=== PATIENT | male | born 1970 | race African-American/Black ===

== ENCOUNTER → 2017-06-11 | Outpatient (CLI) | payer BC ==
[~2017-06-11] MED LIST: OMEP20CA4
[2017-06-11 15:41] LABS: CLARITY URINE CLEAR (CLEAR); COLOR URINE YELLOW (YELLOW); GLUCOSE URINE NEGATIVE (NEGATIVE); KETONES URINE NEGATIVE (NEGATIVE); LEUKOCYTE ESTERASE URINE NEGATIVE (NEGATIVE); NITRITE URINE NEGATIVE (NEGATIVE); OCCULT BLOOD URINE NEGATIVE (NEGATIVE); PH URINE 6.5 (4.5-8.0); PROTEIN URINE NEGATIVE (NEGATIVE); SPECIFIC GRAVITY URINE 1.026 (1.005-1.030)
[2017-06-11 15:44] LABS: BASOPHILS % 0.5 % (0.0-2.0); HEMATOCRIT. 41.4 % (42.0-52.0); HEMOGLOBIN. 13.6 g/dL (14.0-18.0); LYMPHOCYTES % 36.1 % (20.0-50.0); MEAN CORPUSCULAR HEMOGLOBIN 29.8 pg (28.0-32.0); MEAN CORPUSCULAR VOLUME 90.6 fL (80.0-94.0); MEAN PLATELET VOLUME 9.3 fl (7.4-10.4); MONOCYTES % 9.9 % (2.0-8.0); NEUTROPHILS % 51.5 % (40.0-76.0); PLATELET 180 x1000/uL (130-400); RED BLOOD CELL COUNT 4.57 mill/uL (4.7-6.1); RED CELL DISTRIBUTION WIDTH 12.5 % (11.6-14.6)
[2017-06-11 15:51] LABS: CARBON DIOXIDE 31 mEq/L (21-32); CHLORIDE 99 mEq/L (98-107)
[2017-06-11 15:57] LABS: INR 1.2; PARTIAL THROMBOPLASTIN TIME 27.9 sec (24.0-34.0); PROTHROMBIN TIME 12.5 sec
== END | disposition home or self-care (01) ==
LOC: LAB 14:55
PROVIDERS: ATTEND Specialist
DX: Z01.818 Encounter for other preprocedural examination (principal); K40.90 Unilateral inguinal hernia, without obstruction or gangrene, not specified as recurrent; R79.89 Other specified abnormal findings of blood chemistry
CPT/HCPCS: 36415; 80048; 81003; 85025; 85610; 85730; 93005

== ENCOUNTER 2017-06-21 05:28 | Day surgery (SDC) | payer BC ==
[~2017-06-21] VITALS: Ht 190.5 cm; Wt 99.8 kg
[2017-06-21] MEDS ORDERED: BENA1TAB18 PO (06:16)
[2017-06-21] MEDS ORDERED: TETR500C PO (06:16)
[2017-06-21] MEDS ORDERED: ATOR20TA65 PO (06:16)
[2017-06-21] MEDS ORDERED: LACTATED RINGERS 1,000 ML IV SCH (06:30)
[2017-06-21] MEDS ORDERED: NORMAL SALINE 0.9% 10 ML SYR ONE (06:57)
[2017-06-21] MEDS ORDERED: LIDOCAINE HCL 1% 20ML VIAL (Pyxis) INJ ONE (06:57)
[2017-06-21] MEDS ORDERED: BUPIVACAINE HCL/PF 0.5% (5MG/ML) 10ML ONE (06:57)
[2017-06-21] MEDS ORDERED: BACITRACIN 50,000 UNITS/VIAL ONE (06:57)
[2017-06-21] MEDS ORDERED: DEXAMETHASONE 4MG/ML 1ML VIAL ONE (07:46)
[2017-06-21] MEDS ORDERED: ONDANSETRON HCL 4MG/2ML VIAL ONE (07:46)
[2017-06-21] MEDS ORDERED: CEFAZOLIN SODIUM 1000MG/VIAL ONE (07:46)
[2017-06-21] MEDS ORDERED: MEPERIDINE HCL/PF 25MG/ML CPJ IV PRN (08:00)
[2017-06-21] MEDS ORDERED: LABETALOL HCL 20MG/4ML CARPUJECT IV PRN (08:00)
[2017-06-21] MEDS ORDERED: ONDANSETRON HCL 4MG/2ML VIAL IV PRN (08:00)
[2017-06-21] MEDS ORDERED: SKIN ADHESIVE 0.7 GM EA TOP ONE (08:30)
[2017-06-21] MEDS: HYDROMORPHONE HCL/PF 2MG/ML CPJ IV PRN ×4 (09:59→10:55)
[2017-06-21] MEDS ORDERED: KETOROLAC 30MG/ML VIAL IV ONE (10:00)
[2017-06-21 10:55] VITALS: BP 144/86
== END 2017-06-21 12:25 | disposition home or self-care (01) ==
LOC: OR 05:28
PROVIDERS: ATTEND Specialist
DX: K40.90 Unilateral inguinal hernia, without obstruction or gangrene, not specified as recurrent (principal); I10 Essential (primary) hypertension
CPT/HCPCS: 49505; 88304; A4216; G0168; J0690; J1100; J1170; J1885; J2405; J3490; J7120